=== PATIENT | male | born 1990 | race Caucasian/White ===

== ENCOUNTER 2016-12-05 15:42 | Emergency (ER) | payer OTHER ==
--- NOTE | 2016-12-05 18:52 | ERPHSYRPT ---
- History of Present Illness Time Seen by Provider: 12/05/16 17:10 Patient Subjective Stated Complaint: REPORTS ON TUESDAY HE FELL ET ROLLED HIS LEFT ANKLE-DENIES NUMBNESS OR TINLGING-REPORTS PAIN ET SWELLING Triage Nursing Assessment: PT PINK WARM ET DRY-NO OBVIOUS DEFORMITY-PT ABLE TO BEAR WT PAINFULLY Physician History: PATIENT TWISTED HIS LEFT ANKLE 4 DAYS AGO EVALUATED AT ANOTHER EMERGENCY ROOM, WITH NEGATIVE XRAYS, TREATED WITH VELCRO ANKLE SPLINT, NOW HAS INCREASING SWELLING WITH BRUISING AROUND ANKLE. HAS PAIN UPON WEIGHT BEARING. DENIES RE- INJURY OR TRAUMA. Method of Injury: twisted Occurred: days ago Quality: constant Severity of Pain-Max: moderate Severity of Pain-Current: moderate Lower Extremities Pain: ankle: left Modifying Factors: Improves With: movement Associated Symptoms: other (PAIN UPON WEIGHT BEARING) Allergies/Adverse Reactions: No Known Drug Allergies Allergy (Unverified 12/05/16 17:53) Hx Tetanus, Diphtheria Vaccination/Date Given: Yes Hx Influenza Vaccination/Date Given: No Hx Pneumococcal Vaccination/Date Given: No Immunizations Up to Date: Yes - Review of Systems Constitutional: No Symptoms Musculoskeletal: Joint Pain, Joint Swelling - Past Medical History Pertinent Past Medical History: No - Past Surgical History Past Surgical History: No - Social History Smoking Status: Never smoker Exposure to second hand smoke: No Drug Use: none Patient Lives Alone: No - Nursing Vital Signs Nursing Vital Signs: Initial Vital Signs Temperature 98.0 F 12/05/16 16:56 Pulse Rate 80 12/05/16 16:56 Respiratory Rate 16 12/05/16 16:56 Blood Pressure 138/87 12/05/16 16:56 O2 Sat by Pulse Oximetry 97 12/05/16 16:56 Pain Scale Pain Intensity 5 - Physical Exam General Appearance: no apparent distress Ankle Exam: left ankle: limited range of motion (THERE IS ECCHYMOSIS OVER LATERAL MALLEOLUS), soft tissue tenderness, swelling, other (LEFT PEDIS PULSE 2+ ) DTR - Lower Extremities Exam: knee (R): 2+, knee (L): 2+, ankle (R): 2+, ankle ( L): 2+ SpO2 Interpretation: normal SpO2: 99 Oxygen Delivery: Room Air - Radiology Exams Left Ankle X-ray Interpretation: Interpreted by me, Negative Ordered Tests: Active Orders 24 hr Category Date Time Status Crutches STAT Care 12/05/16 17:12 Active ANKLE (3 VIEWS) Stat Exams 12/05/16 17:12 Taken - Progress Progress Note: 12/05/16 19:01 ADMINISTERED CRUTCHES, HAS HIS OWN VELCRO SPLINT Counseled pt/family regarding: diagnosis, need for follow-up, rad results - Departure Time of Disposition: 19:05 Departure Disposition: Home Clinical Impression: LEFT ANKLE STRAIN Condition: Stable Critical Care Time: No Referrals: DOCTOR,NO FAMILY [Primary Care Provider] - Additional Instructions: AMBULATED USING CRUTCHES NONWEIGHT BEARING LEFT FOOT FOR 1 WEEK. ELEVATE FOOT WHILE SITTING OR SUPINE POSITION. TYLENOL #3 EVERY 4 HOURS FOR PAIN. CONSULT YOUR PRIMARY ARE PHYSICIAN IN 1 WEEK FOR FOLLOWUP. Prescriptions: Codeine Phosphate/APAP #3 [Tylenol #3 Tablet] 1 tab PO Q4H PRN PRN #15 tablet PRN Reason: Moderate Pain
[2016-12-05 19:15] VITALS: BP 134/92; PULSE 80; O2SAT 98
--- NOTE | 2016-12-05 21:10 | XRAY ---
Indication: Pain following twisting injury one week ago. Comparison: None 3 views of the left ankle demonstrates soft tissue swelling with lateral talotibial articulation widening better evaluated with MRI. No acute fracture, dislocation, or suspicious bony lesions.
== END 2016-12-05 19:15 | disposition home or self-care (01) ==
LOC: ED 15:42
DX: S93.402D Sprain of unspecified ligament of left ankle, subsequent encounter (principal)
CPT/HCPCS: 73610; 99283